=== PATIENT | female | born 2000 | race Caucasian/White ===

== ENCOUNTER 2019-06-21 14:11 | Emergency (ER) | payer BC ==
[2019-06-21 14:15] VITALS: TEMP 97.9
[2019-06-21] MEDS ORDERED: PANTOPRAZOLE 40 MG/10 ML VIAL IVP STA (14:35)
[2019-06-21] MEDS ORDERED: SODIUM CHLORIDE 0.9% 1,000 ML IV ONE (14:35)
[2019-06-21] MEDS ORDERED: ONDANSETRON 4 MG/2 ML VIAL IVP STA (14:35)
[2019-06-21] MEDS ORDERED: SODIUM CHLORIDE 0.9% 1,000 ML IV STA ×2 (14:36)
--- NOTE | 2019-06-21 14:49 | ED ---
Abdominal Pain HPI - General Chief Complaint: Abdominal Pain Stated Complaint: Vomiting Time Seen by Provider: 06/21/19 14:21 Source: patient, RN notes reviewed, old records reviewed Mode of arrival: ambulatory Limitations: no limitations - History of Present Illness Initial Comments: Patient is a 18-year-old female who presents emergency department today with onset of nausea and vomiting starting at 10 AM when she woke up this morning. Patient states that she has no specific abdominal pain. She also started her menstrual period today. Patient states that she has had no fevers or chills. She denies any changes in urination or bowel habits. - Related Data Home Medications Medication Instructions Recorded Confirmed Ibuprofen [Motrin Ib] 400 mg PO Q6H PRN 06/21/19 06/21/19 Previous Rx's Medication Instructions Recorded Ondansetron Odt [Zofran Odt] 4 mg PO Q8HR PRN #12 tab 06/21/19 Allergies Allergy/AdvReac Type Severity Reaction Status Date / Time No Known Allergies Allergy Verified 06/21/19 16:41 Review of Systems ROS Statement: Those systems with pertinent positive or pertinent negative responses have been documented in the HPI. ROS Other: All systems not noted in ROS Statement are negative. Past Medical History Past Medical History: No Reported History Additional Past Medical History / Comment(s): fx right leg at age 1 yrs old, casted History of Any Multi-Drug Resistant Organisms: None Reported Past Surgical History: Appendectomy Additional Past Anesthesia/Blood Transfusion Reaction / Comment(s): never had s urgery Past Psychological History: Bipolar Smoking Status: Never smoker Past Alcohol Use History: None Reported Past Drug Use History: Marijuana - Past Family History Mother Family Medical History: No Reported History Father Family Medical History: Diabetes Mellitus, Hypertension General Exam - General Exam Comments Initial Comments: 18-year-old female. Alert and oriented. Retching. Moderate discomfort. Limitations: no limitations General appearance: alert, in no apparent distress Head exam: Present: atraumatic, normocephalic, normal inspection Eye exam: Present: normal appearance, PERRL, EOMI. Absent: scleral icterus, conjunctival injection, periorbital swelling ENT exam: Present: normal exam, mucous membranes moist Neck exam: Present: normal inspection. Absent: tenderness, meningismus, lymphadenopathy Respiratory exam: Present: normal lung sounds bilaterally. Absent: respiratory distress, wheezes, rales, rhonchi, stridor Cardiovascular Exam: Present: regular rate, normal rhythm, normal heart sounds. Absent: systolic murmur, diastolic murmur, rubs, gallop, clicks GI/Abdominal exam: Present: soft, normal bowel sounds. Absent: distended, tenderness, guarding, rebound, rigid Extremities exam: Present: normal inspection, full ROM, normal capillary refill. Absent: tenderness, pedal edema, joint swelling, calf tenderness Back exam: Present: normal inspection Neurological exam: Present: alert, oriented X3, CN II-XII intact Psychiatric exam: Present: normal affect, normal mood Skin exam: Present: warm, dry, intact, normal color. Absent: rash Course Vital Signs 06/21/19 06/21/19 06/21/19 14:12 16:39 17:40 Temperature 97.9 F Pulse Rate 80 89 85 Respiratory 20 18 18 Rate Blood Pressure 145/81 100/69 102/64 O2 Sat by Pulse 100 97 98 Oximetry Medical Decision Making - Medical Decision Making 18-year-old female. Presents emergency Department today with vomiting, reports some cramping pain. She denied any specific localized pain at this time. She started her menstrual period today. Patient persistent has multiple episodes of vomiting while in the ED. Lab work was reviewed relatively unremarkable. She did have hematuria. KUB showed concern for 1.27 m density could be related to ureter obstructing stone. Therefore with hematuria and computed tomography scan was completed. There is no evidence of obstructing stone at this time. Patient's computed tomography scan shows no acute ureter obstruction. No other source for nausea and vomiting. After Reglan and she was able tolerate some fluids. Discussed likely viral gastritis. I discussed return parameters and following up the emergency department. - Lab Data Result diagrams: 06/21/19 14:33 06/21/19 14:33 Lab Results 06/21/19 06/21/19 06/21/19 Range/Units 14:33 14:33 14:33 WBC 7.4 (4.0-11.0) k/uL RBC 4.13 (3.80-5.40) m/uL Hgb 13.2 (11.4-16.0) gm/dL Hct 39.2 (34.0-46.0) % MCV 95.0 (80.0-100.0) fL MCH 32.0 (25.0-35.0) pg MCHC 33.7 (31.0-37.0) g/dL RDW 11.8 (11.5-15.5) % Plt Count 202 (150-450) k/uL Neutrophils % 83 % Lymphocytes % 13 % Monocytes % 3 % Eosinophils % 1 % Basophils % 0 % Neutrophils # 6.2 (1.3-7.7) k/uL Lymphocytes # 0.9 L (1.0-4.8) k/uL Monocytes # 0.2 (0-1.0) k/uL Eosinophils # 0.1 (0-0.7) k/uL Basophils # 0.0 (0-0.2) k/uL Sodium 139 (137-145) mmol/L Potassium 3.9 (3.5-5.1) mmol/L Chloride 106 (98-107) mmol/L Carbon Dioxide 25 (22-30) mmol/L Anion Gap 8 mmol/L BUN 11 (7-17) mg/dL Creatinine 0.81 (0.52-1.04) mg/dL Est GFR (CKD-EPI)AfAm >90 (>60 ml/min/1.73 sqM) Est GFR (CKD-EPI)NonAf >90 (>60 ml/min/1.73 sqM) Glucose 125 H (74-99) mg/dL Calcium 9.5 (8.4-10.2) mg/dL Total Bilirubin 0.5 (0.2-1.3) mg/dL AST 23 (14-36) U/L ALT 15 (4-34) U/L Alkaline Phosphatase 52 (38-126) U/L Total Protein 7.6 (6.3-8.2) g/dL Albumin 4.8 (3.5-5.0) g/dL Amylase 83 (30-110) U/L Lipase 40 (23-300) U/L Urine Color Yellow Urine Appearance Turbid H (Clear) Urine pH 5.5 (5.0-8.0) Ur Specific [place] 1.032 (1.001-1.035) Urine Protein 1+ H (Negative) Urine Glucose (UA) Negative (Negative) Urine Ketones 2+ H (Negative) Urine Blood Moderate H (Negative) Urine Nitrite Negative (Negative) Urine Bilirubin Negative (Negative) Urine Urobilinogen 2.0 (<2.0) mg/dL Ur Leukocyte Esterase Small H (Negative) Urine RBC 138 H (0-5) /hpf Urine WBC 6 H (0-5) /hpf Ur Squamous Epith Cells 4 (0-4) /hpf Amorphous Sediment Moderate H (None) /hpf Urine Mucus Occasional H (None) /hpf Urine HCG, Qual (Not Detectd) 06/21/19 Range/Units 14:33 WBC (4.0-11.0) k/uL RBC (3.80-5.40) m/uL Hgb (11.4-16.0) gm/dL Hct (34.0-46.0) % MCV (80.0-100.0) fL MCH (25.0-35.0) pg MCHC (31.0-37.0) g/dL RDW (11.5-15.5) % Plt Count (150-450) k/uL Neutrophils % % Lymphocytes % % Monocytes % % Eosinophils % % Basophils % % Neutrophils # (1.3-7.7) k/uL Lymphocytes # (1.0-4.8) k/uL Monocytes # (0-1.0) k/uL Eosinophils # (0-0.7) k/uL Basophils # (0-0.2) k/uL Sodium (137-145) mmol/L Potassium (3.5-5.1) mmol/L Chloride (98-107) mmol/L Carbon Dioxide (22-30) mmol/L Anion Gap mmol/L BUN (7-17) mg/dL Creatinine (0.52-1.04) mg/dL Est GFR (CKD-EPI)AfAm (>60 ml/min/1.73 sqM) Est GFR (CKD-EPI)NonAf (>60 ml/min/1.73 sqM) Glucose (74-99) mg/dL Calcium (8.4-10.2) mg/dL Total Bilirubin (0.2-1.3) mg/dL AST (14-36) U/L ALT (4-34) U/L Alkaline Phosphatase (38-126) U/L Total Protein (6.3-8.2) g/dL Albumin (3.5-5.0) g/dL Amylase (30-110) U/L Lipase (23-300) U/L Urine Color Urine Appearance (Clear) Urine pH (5.0-8.0) Ur Specific [place] (1.001-1.035) Urine Protein (Negative) Urine Glucose (UA) (Negative) Urine Ketones (Negative) Urine Blood (Negative) Urine Nitrite (Negative) Urine Bilirubin (Negative) Urine Urobilinogen (<2.0) mg/dL Ur Leukocyte Esterase (Negative) Urine RBC (0-5) /hpf Urine WBC (0-5) /hpf Ur Squamous Epith Cells (0-4) /hpf Amorphous Sediment (None) /hpf Urine Mucus (None) /hpf Urine HCG, Qual Not Detected (Not Detectd) - Radiology Data Radiology results: report reviewed Interpreted by me: Calcification over the left upper quadrant the L3 level. This could be a urinary tract calculus. CT shows small amount of fluid in the pelvis on the right side could be physiologic. An obstructing 5 mm low-density calcification on the anterior left kidney. No significant change compared to prior exam. There is a calcific density over the left mid abdomen on x-ray today that is not evidence on computed tomography scan. Overlying artifact. Disposition Clinical Impression: Gastroenteritis, Nausea & vomiting, Menstruation Disposition: HOME SELF-CARE Condition: Good Instructions (If sedation given, give patient instructions): Gastroenteritis (ED) Additional Instructions: Patient advised to rest, clear liquid diet for the next 24 hours and slowly advance to bananas, applesauce and toast and bland food. Medical follow-up with your PCP if symptoms continue to persist or return to the emergency department if there is any high fever or severe pain. Prescriptions: Ondansetron Odt [Zofran Odt] 4 mg PO Q8HR PRN #12 tab PRN Reason: Nausea Is patient prescribed a controlled substance at d/c from ED?: No Referrals: None,Stated [Primary Care Provider] - 1-2 days Time of Disposition: 17:36
[2019-06-21 15:00] LABS: Amorphous Sediment,Urine Moderate /hpf; Appearance,Urine Turbid (Clear); Bilirubin,Urine Negative (Negative); Blood,Urine Moderate (Negative); Color,Urine Yellow; Glucose,Urine (UA) Negative (Negative); Ketones,Urine 2+ (Negative); Leukocyte Esterase,Urine Small (Negative); Mucus,Urine Occasional /hpf; Nitrite,Urine Negative (Negative); PH, Urine 5.5 (5.0-8.0); Protein,Urine 1+ (Negative); RBC,Urine 138 /hpf (0-5); Specific Gravity,Urine 1.032 (1.001-1.035); Squamous Epithelial Cell,Urine 4 /hpf (0-4); WBC,Urine 6 /hpf (0-5)
[2019-06-21 15:03] LABS: ALT 15 U/L (4-34); AST 23 U/L (14-36); African American GFR (CKD) >90 (>60 ml/min/1.73 sqM); Albumin 4.8 g/dL (3.5-5.0); Alkaline Phosphatase 52 U/L (38-126); Amylase 83 U/L (30-110); Anion Gap 8 mmol/L; Blood Urea Nitrogen 11 mg/dL (7-17); Calcium 9.5 mg/dL (8.4-10.2); Carbon Dioxide 25 mmol/L (22-30); Chloride 106 mmol/L (98-107); Glucose 125 mg/dL (74-99); Non-African American GFR(CKD) >90 (>60 ml/min/1.73 sqM); Potassium 3.9 mmol/L (3.5-5.1); Sodium 139 mmol/L (137-145); Total Bilirubin 0.5 mg/dL (0.2-1.3); Total Protein 7.6 g/dL (6.3-8.2)
[2019-06-21 15:15] LABS: Basophils % (A) 0 %; Eosinophils # (A) 0.1 k/uL (0-0.7); Eosinophils % (A) 1 %; HCT 39.2 % (34.0-46.0); HGB 13.2 gm/dL (11.4-16.0); Lymphocytes # (A) 0.9 k/uL (1.0-4.8); Lymphocytes % (A) 13 %; MCHC 33.7 g/dL (31.0-37.0); Mean Platelet Volume 8.6; Monocytes # (A) 0.2 k/uL (0-1.0); Monocytes % (A) 3 %; Neutrophils # (A) 6.2 k/uL (1.3-7.7); Neutrophils % (A) 83 %; Platelet Count 202 k/uL (150-450); RBC 4.13 m/uL (3.80-5.40); RDW 11.8 % (11.5-15.5); WBC 7.4 k/uL (4.0-11.0)
--- NOTE | 2019-06-21 15:20 | XR ---
EXAMINATION TYPE: XR KUB DATE OF EXAM: 06/21/2019 COMPARISON: NONE HISTORY: Abdominal pain TECHNIQUE: 2 views upright FINDINGS: There is no sign of intestinal obstruction or pneumoperitoneum. There is 1.3 cm calcificati on over the left upper quadrant at the L3 level. This could be a urinary tract calculus. Bony structu res are intact. Fecal pattern is normal. IMPRESSION: Calcification on the left side could be in the urinary tract.
[2019-06-21] MEDS ORDERED: KETOROLAC 30 MG/ML 1 ML VIAL IVP STA (15:31)
[2019-06-21] MEDS ORDERED: METOCLOPRAMIDE 5 MG/ML 2 ML VIAL IVP STA (15:31)
--- NOTE | 2019-06-21 16:38 | CT ---
EXAMINATION TYPE: CT abdomen pelvis wo con DATE OF EXAM: 06/21/2019 COMPARISON: 03/17/2016 HISTORY: Abnormal KUB, hematuria, vomiting. CT DLP: 596.7 mGycm Automated exposure control for dose reduction was used. Multiple axial sections were obtained from the diaphragm to the floor the pelvis with no contrast. The lung bases are clear. There is no pleural effusion. Heart size is normal. There is no pericardial effusion. Liver spleen pancreas gallbladder appear normal. Bile ducts are not dilated. There is no a drenal mass. Kidneys have normal size. There is no hydronephrosis. Ureters are not dilated. There is low-density 5 mm calcification anterior left kidney consistent with a nonobstructing calculus. There is no retrope ritoneal adenopathy. There is linear density in the right lower quadrant that could be surgical clips from appendectomy. Appendix is not seen. There is no sign of thickened appendix. There is no inguina l hernia. Uterus is anteverted. There is no evidence of a pelvic mass. There is small amount of free fluid in the pelvis on the right side. There is no mesenteric edema. There is no ascites or free air. There is no evidence of a bowel obstru ction. Lumbar spine is intact. Bony pelvis is intact. IMPRESSION: Small amount of fluid in the pelvis on the right side could be physiologic. Nonobstructing 5 mm low-d ensity calcification anterior left kidney. No significant change compared to old exam. There is a calcific density over the left mid abdomen on the abdomen x-ray today that is not evident on the CT scan. This could be some overlying artifact.
[2019-06-21 16:55] VITALS: RESP 18
[2019-06-21 17:45] VITALS: BP 102/64; PULSE 85
== END 2019-06-21 17:40 | disposition home or self-care (01) ==
LOC: EC 14:11
DX: K52.9 Noninfective gastroenteritis and colitis, unspecified (principal)
CPT/HCPCS: 36415; 80053; 82150; 83690; 85025; 81001; 81025; 74018; 74176; 99285; 96374; 96375 ×3; 96361 ×3; J2765; J2405; J1885; C9113

== ENCOUNTER 2020-11-11 09:39 | Emergency (ER) | payer BC, OTHER ==
[2020-11-11] MEDS ORDERED: SODIUM CHLORIDE 0.9% 1,000 ML IV STA (09:43)
--- NOTE | 2020-11-11 10:02 | ED ---
General Adult HPI - General Chief complaint: Syncope Stated complaint: Syncope Time Seen by Provider: 11/11/20 09:40 Source: EMS Mode of arrival: EMS Limitations: no limitations - History of Present Illness Initial comments: Patient is a 20-year-old female with past medical history of anemia who presents to the emergency department after she had a syncopal episode. 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 She began feeling diaphoretic and lightheaded. She reports that the next thing she knew she was waking up on the ground with everyone around her. She was lowered to the ground and did not sustain any trauma. She was only out for a few seconds. Patient denies previous history of syncope. States she did not eat breakfast this morning however this is common of her to skip the meal. She denies any headaches or visual changes. No chest pain or shortness of breath. No family history of sudden cardiac . She is currently on her menstrual cycle. Denies concern for . Denies any abdominal pain. No heavy vaginal bleeding out of her normal flow. No recent illnesses. Denies fevers or chills. No black or bloody stools. No changes in her urination. Patient was picked up by EMS and found to have initial low blood pressures. She was given a 500 bolus en route to the hospital with improvement. Patient denies any pain in her extremities. No other alleviating, precipitating or modifying factors - Related Data Home Medications Medication Instructions Recorded Confirmed No Known Home Medications 11/11/20 11/11/20 Allergies Allergy/AdvReac Type Severity Reaction Status Date / Time cat dander Allergy Dyspnea Verified 11/11/20 11:38 Review of Systems ROS Statement: Those systems with pertinent positive or pertinent negative responses have been documented in the HPI. ROS Other: All systems not noted in ROS Statement are negative. Past Medical History Past Medical History: No Reported History Additional Past Medical History / Comment(s): fx right leg at age 1 yrs old, casted, anemia History of Any Multi-Drug Resistant Organisms: None Reported Past Surgical History: Appendectomy Additional Past Anesthesia/Blood Transfusion Reaction / Comment(s): never had surgery Past Psychological History: Bipolar Smoking Status: Vaper Past Alcohol Use History: None Reported Past Drug Use History: Marijuana - Past Family History Mother Family Medical History: No Reported History Father Family Medical History: Diabetes Mellitus, Hypertension General Exam Limitations: no limitations General appearance: alert, in no apparent distress Head exam: Present: atraumatic, normocephalic, normal inspection Eye exam: Present: normal appearance, PERRL, EOMI. Absent: scleral icterus, conjunctival injection, periorbital swelling ENT exam: Present: normal exam, mucous membranes moist Neck exam: Present: normal inspection. Absent: tenderness, meningismus, lymphadenopathy Respiratory exam: Present: normal lung sounds bilaterally. Absent: respiratory distress, wheezes, rales, rhonchi, stridor Cardiovascular Exam: Present: regular rate, normal rhythm, normal heart sounds. Absent: systolic murmur, diastolic murmur, rubs, gallop, clicks GI/Abdominal exam: Present: soft, normal bowel sounds. Absent: distended, tenderness, guarding, rebound, rigid Extremities exam: Present: normal inspection, full ROM, normal capillary refill. Absent: tenderness, pedal edema, joint swelling, calf tenderness Back exam: Present: normal inspection Neurological exam: Present: alert, oriented X3, CN II-XII intact Psychiatric exam: Present: normal affect, normal mood Skin exam: Present: warm, dry, intact, normal color. 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 NE interval is 154. QRS 80. QTC of 428. Inverted T-wave in lead 3. No acute ST segment elevations. No signs of [id number]-[id number] or Brugada syndrome Medical Decision Making - Medical Decision Making Upon arrival patient is placed into room 2. A thorough history and physical exam was performed. Orthostatics are obtained and are negative. Patient is already received fluids from EMS. I did give the patient an additional liter bolus. Laboratory studies were conducted. Hemoglobin stable at 12.9. Urinalysis does demonstrate small leukocyte esterase and 17 white blood cells. Patient has no complaint of urinary tract infection at this time and therefore specimen will not be treated. HCG is negative. Glucose 117. I did discuss results with the patient. She is eager to leave. I did discuss diagnosis, differential treatment options. Recommend she follow up with a primary care doctor for which she does not have one. I did recommend several PCP doctors to her. Recommend that she follow up for echo. If she has any new or worsening symptoms she should return to the emergency room. Patient was discharged in stable condition - Lab Data Result diagrams: 11/11/20 09:48 11/11/20 09:48 Lab Results 11/11/20 11/11/20 11/11/20 Range/Units 09:48 09:48 09:48 WBC 3.6 L (3.8-10.6) k/uL RBC 3.81 (3.80-5.40) m/uL Hgb 12.9 (11.4-16.0) gm/dL Hct 37.0 (34.0-46.0) % MCV 97.2 (80.0-100.0) fL MCH 33.8 (25.0-35.0) pg MCHC 34.8 (31.0-37.0) g/dL RDW 11.7 (11.5-15.5) % Plt Count 184 (150-450) k/uL MPV 8.0 Neutrophils % 60 % Lymphocytes % 29 % Monocytes % 5 % Eosinophils % 3 % Basophils % 0 % Neutrophils # 2.1 (1.3-7.7) k/uL Lymphocytes # 1.1 (1.0-4.8) k/uL Monocytes # 0.2 (0-1.0) k/uL Eosinophils # 0.1 (0-0.7) k/uL Basophils # 0.0 (0-0.2) k/uL Sodium 137 (137-145) mmol/L Potassium 3.8 (3.5-5.1) mmol/L Chloride 106 (98-107) mmol/L Carbon Dioxide 23 (22-30) mmol/L Anion Gap 8 mmol/L BUN 11 (7-17) mg/dL Creatinine 0.73 (0.52-1.04) mg/dL Est GFR (CKD-EPI)AfAm >90 (>60 ml/min/1.73 sqM) Est GFR (CKD-EPI)NonAf >90 (>60 ml/min/1.73 sqM) Glucose 117 H (74-99) mg/dL Calcium 8.8 (8.4-10.2) mg/dL Total Bilirubin 0.3 (0.2-1.3) mg/dL AST 17 (14-36) U/L ALT 11 (4-34) U/L Alkaline Phosphatase 49 (38-126) U/L Total Protein 6.5 (6.3-8.2) g/dL Albumin 3.9 (3.5-5.0) g/dL HCG, Qual Not Detected Urine Color Yellow Urine Appearance Cloudy H (Clear) Urine pH 5.5 (5.0-8.0) Ur Specific [place] 1.033 (1.001-1.035) Urine Protein 1+ H (Negative) Urine Glucose (UA) Negative (Negative) Urine Ketones Negative (Negative) Urine Blood Negative (Negative) Urine Nitrite Negative (Negative) Urine Bilirubin 1+ H (Negative) Urine Urobilinogen 4.0 (<2.0) mg/dL Ur Leukocyte Esterase Small H (Negative) Urine RBC 5 (0-5) /hpf Urine WBC 17 H (0-5) /hpf Ur Squamous Epith Cells 5 H (0-4) /hpf Hyaline Casts 4 H (0-2) /lpf Urine Mucus Many H (None) /hpf Disposition Clinical Impression: Syncope Disposition: HOME SELF-CARE Condition: Stable Instructions (If sedation given, give patient instructions): Syncope (ED) Additional Instructions: Please follow-up with your primary care doctor in 2-4 days. I do recommend an echo of her heart. Return to the emergency room for any new or worsening s ymptoms Is patient prescribed a controlled substance at d/c from ED?: No Referrals: Ruth Francisco MD [REFERRING] - 1-2 days Norm Bishop MD [STAFF PHYSICIAN] - 1-2 days Time of Disposition: 11:36
[2020-11-11 10:08] LABS: Basophils % (A) 0 %; Eosinophils # (A) 0.1 k/uL (0-0.7); Eosinophils % (A) 3 %; HGB 12.9 gm/dL (11.4-16.0); Lymphocytes # (A) 1.1 k/uL (1.0-4.8); Lymphocytes % (A) 29 %; MCH 33.8 pg (25.0-35.0); MCHC 34.8 g/dL (31.0-37.0); MCV 97.2 fL (80.0-100.0); Monocytes # (A) 0.2 k/uL (0-1.0); Monocytes % (A) 5 %; Neutrophils # (A) 2.1 k/uL (1.3-7.7); Neutrophils % (A) 60 %; Platelet Count 184 k/uL (150-450); RBC 3.81 m/uL (3.80-5.40); RDW 11.7 % (11.5-15.5); WBC 3.6 k/uL (3.8-10.6)
[2020-11-11 10:16] LABS: HCG,Qualitative Serum Not Detected
[2020-11-11 10:17] LABS: ALT 11 U/L (4-34); AST 17 U/L (14-36); African American GFR (CKD) >90 (>60 ml/min/1.73 sqM); Albumin 3.9 g/dL (3.5-5.0); Alkaline Phosphatase 49 U/L (38-126); Anion Gap 8 mmol/L; Blood Urea Nitrogen 11 mg/dL (7-17); Calcium 8.8 mg/dL (8.4-10.2); Carbon Dioxide 23 mmol/L (22-30); Chloride 106 mmol/L (98-107); Glucose 117 mg/dL (74-99); Non-African American GFR(CKD) >90 (>60 ml/min/1.73 sqM); Potassium 3.8 mmol/L (3.5-5.1); Sodium 137 mmol/L (137-145); Total Bilirubin 0.3 mg/dL (0.2-1.3); Total Protein 6.5 g/dL (6.3-8.2)
[2020-11-11 10:57] VITALS: BP 147/95; PULSE 70; RESP 16; TEMP 98.2
[2020-11-11 11:23] LABS: Appearance,Urine Cloudy (Clear); Bilirubin,Urine 1+ (Negative); Blood,Urine Negative (Negative); Color,Urine Yellow; Glucose,Urine (UA) Negative (Negative); Hyaline Casts,Urine 4 /lpf (0-2); Ketones,Urine Negative (Negative); Leukocyte Esterase,Urine Small (Negative); Mucus,Urine Many /hpf; Nitrite,Urine Negative (Negative); PH, Urine 5.5 (5.0-8.0); Protein,Urine 1+ (Negative); RBC,Urine 5 /hpf (0-5); Specific Gravity,Urine 1.033 (1.001-1.035); Squamous Epithelial Cell,Urine 5 /hpf (0-4); WBC,Urine 17 /hpf (0-5)
== END 2020-11-11 12:02 | disposition home or self-care (01) ==
LOC: EC 09:39
DX: R55 Syncope and collapse (principal); R42 Dizziness and giddiness; F31.9 Bipolar disorder, unspecified; F17.290 Nicotine dependence, other tobacco product, uncomplicated; F12.90 Cannabis use, unspecified, uncomplicated; R61 Generalized hyperhidrosis
CPT/HCPCS: 36415; 80053; 81001; 84703; 85025; 93005; 96360; 96361; 99284

== ENCOUNTER 2021-03-04 08:06 | Emergency (ER) | payer OTHER ==
--- NOTE | 2021-03-04 09:34 | ED ---
Female Urogenital HPI - General Chief complaint: Vaginal Bleeding Stated complaint: , vaginal bleeding Time Seen by Provider: 03/04/21 08:12 Source: patient, RN notes reviewed Mode of arrival: ambulatory Limitations: no limitations - History of Present Illness Initial comments: Patient is a 20-year-old female presenting to the emergency Department with complaints of vaginal bleeding and abdominal cramping that started last night. The patient took a home test about 1-2 weeks ago, was positive. Serum having some light spotting yesterday, decided to take another test which was positive again. She states the bleeding has increased today and she started having worsening cramping so she came in for evaluation. This is her first . As her chills, no chest pain or shortness of breath. She's had appendectomy, no other abdominal surgeries. She denies any dysuria or hematuria. She has no further complaints. Her vital signs are stable upon arrival. Last Menstrual Period: 01/29/21 - Related Data Home Medications Medication Instructions Recorded Confirmed No Known Home Medications 11/11/20 03/04/21 Allergies Allergy/AdvReac Type Severity Reaction Status Date / Time cat dander Allergy Dyspnea Verified 03/04/21 09:27 Review of Systems ROS Statement: Those systems with pertinent positive or pertinent negative responses have been documented in the HPI. ROS Other: All systems not noted in ROS Statement are negative. Past Medical History Past Medical History: No Reported History Additional Past Medical History / Comment(s): fx right leg at age 1 yrs old, casted, anemia History of Any Multi-Drug Resistant Organisms: None Reported Past Surgical History: Appendectomy Additional Past Anesthesia/Blood Transfusion Reaction / Comment(s): never had surgery Past Psychological History: Bipolar Smoking Status: Vaper Past Alcohol Use History: None Reported Past Drug Use History: Marijuana - Past Family History Mother Family Medical History: No Reported History Father Family Medical History: Diabetes Mellitus, Hypertension General Exam - General Exam Comments Initial Comments: GENERAL: Patient is well-developed and well-nourished. Patient is nontoxic and in no acute distress. HEAD: Atraumatic, normocephalic. EYES: Pupils equal round and reactive to light, extraocular movements intact, sclera anicteric, conjunctiva are normal. Eyelids were unremarkable. ENT: Moist mucous membranes. NECK: Normal range of motion, supple without lymphadenopathy or JVD. LUNGS: Unlabored respirations. Breath sounds clear to auscultation bilaterally and equal. No wheezes rales or rhonchi. HEART: Regular rate and rhythm without murmurs, rubs or gallops. ABDOMEN: Soft, mild suprapubic discomfort on palpation, no other areas of pain normoactive bowel sounds. No guarding, no rebound. No masses appreciated. : Deferred MUSCULOSKELETAL: Normal extremities with adequate strength and normal range of motion, no pitting or edema. No clubbing or cyanosis. NEUROLOGICAL: Patient is alert and oriented x 3. SKIN: Warm, Dry, normal turgor, no rashes or lesions noted. Limitations: no limitations Course Vital Signs 03/04/21 08:08 Temperature 97.2 F L Pulse Rate 55 L Respiratory 18 Rate Blood Pressure 121/86 O2 Sat by Pulse 100 Oximetry Medical Decision Making - Medical Decision Making Patient is a 20-year-old female here for vaginal bleeding and abdominal cramping and increased today. She had a home positive test 1-2 weeks ago, she took another one yesterday. This is her first . Vitals are stable, no fevers. Labs show an hCG Quant is 6.9, no signs of infection on the urine. Blood type is O+. Ultrasound at this time shows no visualized IUP, this could be a too early visualized , nonvisualized ectopic and/or a failed . Recommend serial beta hCGs. She will repeat the beta in 48 hours. I will give her [facility] [facility]IST follow-up. She is stable for discharge. Return parameters were also discussed with her and she verbalized understanding. Case discussed with Dr. Lama. - Lab Data Result diagrams: 03/04/21 09:05 03/04/21 09:05 Lab Results 03/04/21 03/04/21 03/04/21 Range/Units 09:05 09:05 09:05 WBC 4.3 (3.8-10.6) k/uL RBC 3.78 L (3.80-5.40) m/uL Hgb 12.9 (11.4-16.0) gm/dL Hct 36.5 (34.0-46.0) % MCV 96.5 (80.0-100.0) fL MCH 34.1 (25.0-35.0) pg MCHC 35.3 (31.0-37.0) g/dL RDW 12.5 (11.5-15.5) % Plt Count 191 (150-450) k/uL MPV 8.2 Neutrophils % 55 % Lymphocytes % 34 % Monocytes % 6 % Eosinophils % 3 % Basophils % 0 % Neutrophils # 2.4 (1.3-7.7) k/uL Lymphocytes # 1.5 (1.0-4.8) k/uL Monocytes # 0.3 (0-1.0) k/uL Eosinophils # 0.1 (0-0.7) k/uL Basophils # 0.0 (0-0.2) k/uL Sodium 139 (137-145) mmol/L Potassium 4.5 (3.5-5.1) mmol/L Chloride 106 (98-107) mmol/L Carbon Dioxide 27 (22-30) mmol/L Anion Gap 6 mmol/L BUN 11 (7-17) mg/dL Creatinine 0.79 (0.52-1.04) mg/dL Est GFR (CKD-EPI)AfAm >90 (>60 ml/min/1.73 sqM) Est GFR (CKD-EPI)NonAf >90 (>60 ml/min/1.73 sqM) Glucose 88 (74-99) mg/dL Calcium 8.9 (8.4-10.2) mg/dL Total Bilirubin 0.2 (0.2-1.3) mg/dL AST 21 (14-36) U/L ALT 17 (4-34) U/L Alkaline Phosphatase 78 (38-126) U/L Total Protein 6.5 (6.3-8.2) g/dL Albumin 3.9 (3.5-5.0) g/dL HCG, Quant 6.9 mIU/mL Urine Color Red Urine Appearance Cloudy H (Clear) Urine pH 5.5 (5.0-8.0) Ur Specific [place] 1.029 (1.001-1.035) Urine Protein 2+ H (Negative) Urine Glucose (UA) Negative (Negative) Urine Ketones Trace H (Negative) Urine Blood Large H (Negative) Urine Nitrite Negative (Negative) Urine Bilirubin Negative (Negative) Urine Urobilinogen 2.0 (<2.0) mg/dL Ur Leukocyte Esterase Small H (Negative) Urine RBC >182 H (0-5) /hpf Urine WBC 18 H (0-5) /hpf Ur Squamous Epith Cells 10 H (0-4) /hpf Urine Mucus Many H (None) /hpf Blood Type Blood Type Confirm Blood Type Recheck Bld Type Recheck Status Antibody Screen Spec Expiration Date 03/04/21 03/04/21 03/04/21 Range/Units 09:12 09:20 10:02 WBC (3.8-10.6) k/uL RBC (3.80-5.40) m/uL Hgb (11.4-16.0) gm/dL Hct (34.0-46.0) % MCV (80.0-100.0) fL MCH (25.0-35.0) pg MCHC (31.0-37.0) g/dL RDW (11.5-15.5) % Plt Count (150-450) k/uL MPV Neutrophils % % Lymphocytes % % Monocytes % % Eosinophils % % Basophils % % Neutrophils # (1.3-7.7) k/uL Lymphocytes # (1.0-4.8) k/uL Monocytes # (0-1.0) k/uL Eosinophils # (0-0.7) k/uL Basophils # (0-0.2) k/uL Sodium (137-145) mmol/L Potassium (3.5-5.1) mmol/L Chloride (98-107) mmol/L Carbon Dioxide (22-30) mmol/L Anion Gap mmol/L BUN (7-17) mg/dL Creatinine (0.52-1.04) mg/dL Est GFR (CKD-EPI)AfAm (>60 ml/min/1.73 sqM) Est GFR (CKD-EPI)NonAf (>60 ml/min/1.73 sqM) Glucose (74-99) mg/dL Calcium (8.4-10.2) mg/dL Total Bilirubin (0.2-1.3) mg/dL AST (14-36) U/L ALT (4-34) U/L Alkaline Phosphatase (38-126) U/L Total Protein (6.3-8.2) g/dL Albumin (3.5-5.0) g/dL HCG, Quant mIU/mL Urine Color Urine Appearance (Clear) Urine pH (5.0-8.0) Ur Specific [place] (1.001-1.035) Urine Protein (Negative) Urine Glucose (UA) (Negative) Urine Ketones (Negative) Urine Blood (Negative) Urine Nitrite (Negative) Urine Bilirubin (Negative) Urine Urobilinogen (<2.0) mg/dL Ur Leukocyte Esterase (Negative) Urine RBC (0-5) /hpf Urine WBC (0-5) /hpf Ur Squamous Epith Cells (0-4) /hpf Urine Mucus (None) /hpf Blood Type O Positive Blood Type Confirm O Positive Blood Type Recheck No Previous Record Bld Type Recheck Status CABO Indicated Antibody Screen NEGATIVE Spec Expiration Date 03/07/20212304 Disposition Clinical Impression: Threatened Disposition: HOME SELF-CARE Condition: Stable Instructions (If sedation given, give patient instructions): Threatened Miscarriage (ED) Additional Instructions: Please return to the Emergency Department if symptoms worsen or any other concerns. Repeat beta hCG levels in 48 hours as discussed. Please follow up with [facility] M[facility]INIST. Is patient prescribed a controlled substance at d/c from ED?: No Referrals: None,Stated [Primary Care Provider] - 1-2 days Shauna Hector DO [Doctor of Osteopathic Medicine] - 1-2 days Time of Disposition: 11:17
[2021-03-04 09:59] LABS: Basophils % (A) 0 %; Eosinophils # (A) 0.1 k/uL (0-0.7); Eosinophils % (A) 3 %; HCT 36.5 % (34.0-46.0); HGB 12.9 gm/dL (11.4-16.0); Lymphocytes # (A) 1.5 k/uL (1.0-4.8); Lymphocytes % (A) 34 %; MCH 34.1 pg (25.0-35.0); MCHC 35.3 g/dL (31.0-37.0); MCV 96.5 fL (80.0-100.0); Mean Platelet Volume 8.2; Monocytes # (A) 0.3 k/uL (0-1.0); Monocytes % (A) 6 %; Neutrophils # (A) 2.4 k/uL (1.3-7.7); Neutrophils % (A) 55 %; Platelet Count 191 k/uL (150-450); RBC 3.78 m/uL (3.80-5.40); RDW 12.5 % (11.5-15.5); WBC 4.3 k/uL (3.8-10.6)
[2021-03-04 10:10] LABS: ALT 17 U/L (4-34); AST 21 U/L (14-36); African American GFR (CKD) >90 (>60 ml/min/1.73 sqM); Albumin 3.9 g/dL (3.5-5.0); Alkaline Phosphatase 78 U/L (38-126); Anion Gap 6 mmol/L; Blood Urea Nitrogen 11 mg/dL (7-17); Calcium 8.9 mg/dL (8.4-10.2); Carbon Dioxide 27 mmol/L (22-30); Chloride 106 mmol/L (98-107); Glucose 88 mg/dL (74-99); Non-African American GFR(CKD) >90 (>60 ml/min/1.73 sqM); Potassium 4.5 mmol/L (3.5-5.1); Sodium 139 mmol/L (137-145); Total Bilirubin 0.2 mg/dL (0.2-1.3); Total Protein 6.5 g/dL (6.3-8.2)
[2021-03-04 10:25] LABS: Appearance,Urine Cloudy (Clear); Bilirubin,Urine Negative (Negative); Blood,Urine Large (Negative); Color,Urine Red; Glucose,Urine (UA) Negative (Negative); Ketones,Urine Trace (Negative); Leukocyte Esterase,Urine Small (Negative); Mucus,Urine Many /hpf; Nitrite,Urine Negative (Negative); PH, Urine 5.5 (5.0-8.0); Protein,Urine 2+ (Negative); RBC,Urine >182 /hpf (0-5); Specific Gravity,Urine 1.029 (1.001-1.035); Squamous Epithelial Cell,Urine 10 /hpf (0-4); WBC,Urine 18 /hpf (0-5)
[2021-03-04 10:27] LABS: HCG,Quantitative Serum 6.9 mIU/mL
--- NOTE | 2021-03-04 11:02 | US ---
EXAMINATION TYPE: Ultrasound OB <= 14 weeks transvaginal DATE OF EXAM: 03/04/2021 10:31 AM COMPARISON: NONE CLINICAL HISTORY: 20-year-old female early preg, bleeding/cramping. + preg test at home, cramping and bleeding started today, passing clots, G1 EXAM PERFORMED: OBTA/OBTV EXAM MEASUREMENTS: GESTATIONAL AGE / DATING Physician Established: Not yet established Dates by LMP: (4 weeks/6 days) EDC: 11/05/2021 Dates by First Scan: No previous this is first scan Dates by Current Scan for: Unable to date by today's study FINDINGS: MATERNAL ANATOMY Uterus: 7.3 x 4.0 x 3.8cm Right Ovary: 3.7 x 2.2 x 1.6cm Left Ovary: 2.1 x 1.6 x 1.9cm Post CDS / Adnexa: wnl Presence of free fluid: no Presence of corpus luteal cyst: possible on the right = 1.7cm Presence of subchorionic bleed: no GESTATION / SURVEY Endometrium = 0.4 - 0.8cm Date of LMP: 01-29-2021 Beta HcG (if available): 6.9 IMPRESSION: No visualized intrauterine . Note the very low beta hCG, below the threshold for visualizati on of an intrauterine . Differential considerations include too early to visualize intrauter ine , nonvisualized ectopic, and failed . Serial beta hCG recommended. Ultrasound f ollow-up to ensure the appearance of a normal pole with cardiac activity.
[2021-03-04 12:01] VITALS: BP 118/84; PULSE 62; RESP 17; TEMP 97.1
== END 2021-03-04 12:01 | disposition home or self-care (01) ==
LOC: EC 08:06
DX: O20.0 Threatened abortion (principal); Z3A.00 Weeks of gestation of pregnancy not specified; F31.9 Bipolar disorder, unspecified; F17.290 Nicotine dependence, other tobacco product, uncomplicated; F12.90 Cannabis use, unspecified, uncomplicated
CPT/HCPCS: 36415; 76801; 76817; 80053; 81001; 84702; 85025; 86850; 86900; 86901; 87077; 87086; 87186; 99284

== ENCOUNTER → 2021-03-06 | Outpatient (CLI) | payer OTHER | END | disposition home or self-care (01) | LOC: LABWHC1 12:34 → EDSTATUS 13:19 | PROVIDERS: ATTEND Specialist/Technologist Athletic Trainer | DX: O20.0 Threatened abortion (principal); Z3A.00 Weeks of gestation of pregnancy not specified | CPT/HCPCS: 36415; 84702 ==

== ENCOUNTER 2021-08-24 09:50 | Emergency (ER) | payer OTHER ==
[2021-08-24 10:57] VITALS: RESP 18
[2021-08-24] MEDS ORDERED: SODIUM CHLORIDE 0.9% 1,000 ML IV ONE (11:20)
[2021-08-24 12:06] LABS: Basophils % (A) 1 %; Eosinophils % (A) 0 %; HCT 37.4 % (34.0-46.0); HGB 12.7 gm/dL (11.4-16.0); Lymphocytes # (A) 1.1 k/uL (1.0-4.8); Lymphocytes % (A) 24 %; MCH 32.3 pg (25.0-35.0); MCV 94.8 fL (80.0-100.0); Mean Platelet Volume 7.3; Monocytes # (A) 0.4 k/uL (0-1.0); Monocytes % (A) 8 %; Neutrophils # (A) 2.9 k/uL (1.3-7.7); Neutrophils % (A) 65 %; Platelet Count 261 k/uL (150-450); RBC 3.95 m/uL (3.80-5.40); RDW 11.7 % (11.5-15.5); WBC 4.5 k/uL (3.8-10.6)
[2021-08-24 12:25] LABS: ALT 15 U/L (4-34); AST 25 U/L (14-36); African American GFR (CKD) >90 (>60 ml/min/1.73 sqM); Albumin 4.4 g/dL (3.5-5.0); Alkaline Phosphatase 46 U/L (38-126); Anion Gap 12 mmol/L; Blood Urea Nitrogen 9 mg/dL (7-17); Calcium 8.9 mg/dL (8.4-10.2); Carbon Dioxide 25 mmol/L (22-30); Chloride 99 mmol/L (98-107); Glucose 86 mg/dL (74-99); Non-African American GFR(CKD) >90 (>60 ml/min/1.73 sqM); Potassium 3.3 mmol/L (3.5-5.1); Sodium 136 mmol/L (137-145); Total Bilirubin 0.4 mg/dL (0.2-1.3); Total Protein 7.6 g/dL (6.3-8.2)
--- NOTE | 2021-08-24 12:27 | US ---
EXAMINATION TYPE: Transabdominal DATE OF EXAM: 08/24/2021 12:17 PM COMPARISON: NONE CLINICAL HISTORY: pain. Pelvic pain and bleeding x 1 day EXAM PERFORMED: Transabdominal (TA) EXAM MEASUREMENTS: GESTATIONAL AGE / DATING Physician Established: (13 weeks/1 days) EDC: 02/28/2022 Dates by LMP: LMP unknown Dates by First Scan: No previous this is first scan Dates by Current Scan for: (13 weeks/5 days) EDC: 02/24/2022 MATERNAL ANATOMY Uterus: 11.6 x 9.2 x 9.2cm Right Ovary: 2.8 x 2.0 x 1.7cm Left Ovary: 3.2 x 2.6 x 1.8cm Post CDS / Adnexa: small amount of free fluid in posterior cul de sac Presence of free fluid: yes Presence of corpus luteal cyst: not seen Presence of subchorionic bleed: 3.2cm anterior to gestational sac GESTATION / SURVEY CRL: 7.6cm (13 weeks/5 days) Yolk Sac (normal less than 6mm): not seen Heart Rate: 144 bpm Rhythm: Normal IUP: Viable IUP Single live intrauterine gestation as pole and gestational sac seen. Curvilinear anterior right fluid collection measuring 3.2 cm long axis is felt to reflect small subchorionic hemorrhage. No yol k sac identified likely due to size of fetus. Trace amount of free fluid in pelvic cul-de-sac. Both ovaries seen and normal in size. No suspicious extraovarian adnexal mass. IMPRESSION: Single live intrauterine gestation is confirmed. Mean crown-rump length is 7.6 cm corresp onding to 13 week 5 day old fetus.
[2021-08-24 12:31] LABS: Appearance,Urine Cloudy (Clear); Bacteria,Urine Rare /hpf; Bilirubin,Urine Negative (Negative); Blood,Urine Large (Negative); Color,Urine Dark Brown; Glucose,Urine (UA) Negative (Negative); Ketones,Urine 4+ (Negative); Leukocyte Esterase,Urine Small (Negative); Mucus,Urine Many /hpf; Nitrite,Urine Negative (Negative); Protein,Urine 3+ (Negative); RBC,Urine >182 /hpf (0-5); Squamous Epithelial Cell,Urine 5 /hpf (0-4); WBC,Urine 24 /hpf (0-5)
--- NOTE | 2021-08-24 13:48 | ED ---
General Adult HPI - General Chief complaint: Vaginal Bleeding Stated complaint: 12wks/Poss Miscarriage Time Seen by Provider: 08/24/21 11:12 Source: patient Mode of arrival: ambulatory Limitations: no limitations - History of Present Illness Initial comments: Patient is a 21-year-old female currently 13 weeks , presenting with chief complaint of vaginal bleeding and pelvic cramping. Patient states that this was sudden in onset while sitting on the couch this morning. Patient has history of miscarriage. She is currently being treated for UTI with Keflex. She denies any nausea, vomiting, upper abdominal pain, chest pain, shortness of breath, back pain, dysuria, hematuria, fever, chills, preceding vaginal discharge. - Related Data Home Medications Medication Instructions Recorded Confirmed Acetaminophen Tab [Tylenol] 650 mg PO Q4H PRN 08/24/21 08/24/21 Cephalexin [Keflex] 500 mg PO QID 08/24/21 08/24/21 Allergies Allergy/AdvReac Type Severity Reaction Status Date / Time cat dander Allergy Dyspnea Verified 08/24/21 12:13 Review of Systems ROS Statement: Those systems with pertinent positive or pertinent negative responses have been documented in the HPI. ROS Other: All systems not noted in ROS Statement are negative. Past Medical History Past Medical History: No Reported History Additional Past Medical History / Comment(s): fx right leg at age 1 yrs old, casted, anemia History of Any Multi-Drug Resistant Organisms: None Reported Past Surgical History: Appendectomy Additional Past Anesthesia/Blood Transfusion Reaction / Comment(s): never had surgery Past Psychological History: Bipolar Smoking Status: Vaper Past Alcohol Use History: None Reported Past Drug Use History: Marijuana - Past Family History Mother Family Medical History: No Reported History Father Family Medical History: Diabetes Mellitus, Hypertension General Exam Limitations: no limitations General appearance: alert, in no apparent distress Head exam: Present: atraumatic, normocephalic, normal inspection Eye exam: Present: normal appearance, EOMI. Absent: scleral icterus Neck exam: Present: normal inspection Respiratory exam: Present: normal lung sounds bilaterally. Absent: respiratory distress, wheezes, rales, rhonchi, stridor Cardiovascular Exam: Present: regular rate, normal rhythm, normal heart sounds. Absent: systolic murmur, diastolic murmur, rubs, gallop, clicks GI/Abdominal exam: Present: soft, tenderness (B/L pelvis), normal bowel sounds. Absent: distended, guarding, rebound, rigid Back exam: Absent: CVA tenderness (R), CVA tenderness (L) Neurological exam: Present: alert, oriented X3, CN II-XII intact Psychiatric exam: Present: normal affect, normal mood Skin exam: Present: warm, dry, intact, normal color. Absent: rash Course Vital Signs 08/24/21 08/24/21 10:52 15:16 Temperature 98.1 F 98.0 F Pulse Rate 105 H 92 Respiratory 18 18 Rate Blood Pressure 115/76 104/63 O2 Sat by Pulse 96 96 Oximetry Medical Decision Making - Medical Decision Making Patient is a 21-year-old female currently 13 weeks presenting with chief complaint of vaginal bleeding. She states she was sitting on the couch today when she experienced sudden onset cramping and bleeding. She is currently being treated with Keflex for UTI. On examination there is mild tenderness on palpation over the pelvis. Urine is remarkable for UTI, when asked patient stated that she only started taking Keflex today. Ultrasound shows single live intrauterine gestation corresponding to 13 weeks and 5 days. heart tones are 144. I explained to patient that at this time findings are stable, however she must follow up with [facility] P[facility] INSPECTOR to ensure that they are still stable in the coming days. Follow-up with SEAT PACK INSPECTOR in one to 2 days. Continue taking Keflex as prescribed by your SEAT PACK INSPECTOR. I educated her on return parameters and alarm symptoms. Report back to ER with any worsening symptoms. I answered all questions. Patient conveyed verbal understanding and agreed to the plan. My attending is Dr. Lama. - Lab Data Result diagrams: 08/24/21 11:37 08/24/21 11:37 Lab Results 08/24/21 08/24/21 08/24/21 Range/Units 11:37 11:37 11:37 WBC 4.5 (3.8-10.6) k/uL RBC 3.95 (3.80-5.40) m/uL Hgb 12.7 (11.4-16.0) gm/dL Hct 37.4 (34.0-46.0) % MCV 94.8 (80.0-100.0) fL MCH 32.3 (25.0-35.0) pg MCHC 34.0 (31.0-37.0) g/dL RDW 11.7 (11.5-15.5) % Plt Count 261 (150-450) k/uL MPV 7.3 Neutrophils % 65 % Lymphocytes % 24 % Monocytes % 8 % Eosinophils % 0 % Basophils % 1 % Neutrophils # 2.9 (1.3-7.7) k/uL Lymphocytes # 1.1 (1.0-4.8) k/uL Monocytes # 0.4 (0-1.0) k/uL Eosinophils # 0.0 (0-0.7) k/uL Basophils # 0.0 (0-0.2) k/uL Sodium 136 L (137-145) mmol/L Potassium 3.3 L (3.5-5.1) mmol/L Chloride 99 (98-107) mmol/L Carbon Dioxide 25 (22-30) mmol/L Anion Gap 12 mmol/L BUN 9 (7-17) mg/dL Creatinine 0.64 (0.52-1.04) mg/dL Est GFR (CKD-EPI)AfAm >90 (>60 ml/min/1.73 sqM) Est GFR (CKD-EPI)NonAf >90 (>60 ml/min/1.73 sqM) Glucose 86 (74-99) mg/dL Calcium 8.9 (8.4-10.2) mg/dL Total Bilirubin 0.4 (0.2-1.3) mg/dL AST 25 (14-36) U/L ALT 15 (4-34) U/L Alkaline Phosphatase 46 (38-126) U/L Total Protein 7.6 (6.3-8.2) g/dL Albumin 4.4 (3.5-5.0) g/dL HCG, Quant 124153.0 mIU/mL Urine Color Dark Brown Urine Appearance Cloudy H (Clear) Urine pH 6.0 (5.0-8.0) Ur Specific [place] 1.030 (1.001-1.035) Urine Protein 3+ H (Negative) Urine Glucose (UA) Negative (Negative) Urine Ketones 4+ H (Negative) Urine Blood Large H (Negative) Urine Nitrite Negative (Negative) Urine Bilirubin Negative (Negative) Urine Urobilinogen 6.0 (<2.0) mg/dL Ur Leukocyte Esterase Small H (Negative) Urine RBC >182 H (0-5) /hpf Urine WBC 24 H (0-5) /hpf Ur Squamous Epith Cells 5 H (0-4) /hpf Urine Bacteria Rare H (None) /hpf Urine Mucus Many H (None) /hpf Blood Type Blood Type Recheck Bld Type Recheck Status Antibody Screen Spec Expiration Date 08/24/21 Range/Units 11:37 WBC (3.8-10.6) k/uL RBC (3.80-5.40) m/uL Hgb (11.4-16.0) gm/dL Hct (34.0-46.0) % MCV (80.0-100.0) fL MCH (25.0-35.0) pg MCHC (31.0-37.0) g/dL RDW (11.5-15.5) % Plt Count (150-450) k/uL MPV Neutrophils % % Lymphocytes % % Monocytes % % Eosinophils % % Basophils % % Neutrophils # (1.3-7.7) k/uL Lymphocytes # (1.0-4.8) k/uL Monocytes # (0-1.0) k/uL Eosinophils # (0-0.7) k/uL Basophils # (0-0.2) k/uL Sodium (137-145) mmol/L Potassium (3.5-5.1) mmol/L Chloride (98-107) mmol/L Carbon Dioxide (22-30) mmol/L Anion Gap mmol/L BUN (7-17) mg/dL Creatinine (0.52-1.04) mg/dL Est GFR (CKD-EPI)AfAm (>60 ml/min/1.73 sqM) Est GFR (CKD-EPI)NonAf (>60 ml/min/1.73 sqM) Glucose (74-99) mg/dL Calcium (8.4-10.2) mg/dL Total Bilirubin (0.2-1.3) mg/dL AST (14-36) U/L ALT (4-34) U/L Alkaline Phosphatase (38-126) U/L Total Protein (6.3-8.2) g/dL Albumin (3.5-5.0) g/dL HCG, Quant mIU/mL Urine Color Urine Appearance (Clear) Urine pH (5.0-8.0) Ur Specific [place] (1.001-1.035) Urine Protein (Negative) Urine Glucose (UA) (Negative) Urine Ketones (Negative) Urine Blood (Negative) Urine Nitrite (Negative) Urine Bilirubin (Negative) Urine Urobilinogen (<2.0) mg/dL Ur Leukocyte Esterase (Negative) Urine RBC (0-5) /hpf Urine WBC (0-5) /hpf Ur Squamous Epith Cells (0-4) /hpf Urine Bacteria (None) /hpf Urine Mucus (None) /hpf Blood Type O Positive Blood Type Recheck O Pos Bld Type Recheck Status No Antibody Screen NEGATIVE Spec Expiration Date 08/27/20212336 Disposition Clinical Impression: Subchorionic bleed, Threatened Disposition: HOME SELF-CARE Condition: Good Instructions (If sedation given, give patient instructions): Threatened Miscarriage (ED) Additional Instructions: Follow up with your SEAT PACK INSPECTOR in 1-2 days. Report back to ER if any worsening symptoms. Continue taking medication for UTI as prescribed by your SEAT PACK INSPECTOR. Is patient prescribed a controlled substance at d/c from ED?: No Referrals: None,Stated [Primary Care Provider] - 1-2 days Time of Disposition: 15:02
[2021-08-24 15:27] VITALS: BP 104/63; PULSE 92; TEMP 98
== END 2021-08-24 15:25 | disposition home or self-care (01) ==
LOC: EC 09:50
DX: O20.0 Threatened abortion (principal); Z87.59 Personal history of other complications of pregnancy, childbirth and the puerperium; F17.209 Nicotine dependence, unspecified, with unspecified nicotine-induced disorders; Z91.09 Other allergy status, other than to drugs and biological substances; Z3A.13 13 weeks gestation of pregnancy
CPT/HCPCS: 36415; 76801; 80053; 81001; 84702; 85025; 86850; 86900; 86901; 87086

== ENCOUNTER → 2021-09-07 | Outpatient (CLI) | payer OTHER ==
--- NOTE | 2021-09-08 06:13 | US ---
EXAMINATION TYPE: US OB >= 14 wk fetus DATE OF EXAM: 09/07/2021 COMPARISON: Prior ultrasound 2 weeks ago CLINICAL HISTORY: z36.89 confirm age and dates. Patient was in ER a few days ago when "someone" from OB floor did US and told her she had subchorionic bleed. US department did not do scan. milagro eugenia ralphAmada A1 TECHNIQUE: OBTA GESTATIONAL AGE / DATING Physician Established: (15 weeks/1 days) EDC: 02/28/2022 Dates by LMP: (15 weeks/1 days) EDC: 02/28/2022 Dates by First Scan: No previous this is first scan Dates by Current Scan: (16 weeks/0 days) EDC: 02/22/2022 SURVEY IUP: Single PLACENTA: Anterior PREVIA: No Previa SOHA: 13.5 cm Normal CERVICAL LENGTH: 2.6 cm BIOMETRY PRESENTATION: Vertex LIE: Longitudinal BPD: 3.1 cm 15 weeks / 6 days HC: 12.1 cm 16 weeks / 1 days AC: 10.1 cm 16 weeks / 1 days FL: 1.9 cm 15 weeks / 5 days ESTIMATED WEIGHT IN GRAMS: 138 grams ESTIMATED WEIGHT IN LBS/OZ: 0 lbs. 5 oz. WEIGHT PERCENTAGE BASED ON ESTABLISHED DATES: 87% HC/AC: 1.2 Normal FL/AC: 19 Normal HEART RATE: 140 bpm RHYTHM: Normal No signs of subchorionic bleed noted on today's exam. Anechoic sac like area by a band do es appear on the right side of gestational sac. Amniotic band issue versus other etiology Single live intrauterine gestation is redemonstrated. Cervical length lower limits of normal. No plac enta previa. Normal cephalad presentation. Estimated amniotic fluid index within normal limits. biometric measurements congruent and within normal limits with interval satisfactory progression. No suspicious fluid collection or subchorionic hemorrhage noted. IMPRESSION: As above.
== END | disposition home or self-care (01) ==
LOC: RADUSWWP 18:23
PROVIDERS: ATTEND Obstetrics & Gynecology
DX: Z36.89 Encounter for other specified antenatal screening (principal); Z3A.15 15 weeks gestation of pregnancy
CPT/HCPCS: 76805

== ENCOUNTER 2022-02-23 20:48 | Outpatient (CLI) | payer BC, OTHER ==
[2022-02-23 22:51] VITALS: BP 133/83; PULSE 101; RESP 16; TEMP 97.5
--- NOTE | 2022-02-25 02:32 | P.MSEPDOC ---
Presenting Problems - Arrival Data Date of Arrival on Unit: 02/23/22 Time of Arrival on Unit: 20:48 Mode of Transport: Ambulatory - Complaint OB-Reason for Admission/Chief Complaint: Rule Out SROM Comment: Patient states that she feels like she is leaking fluid since yesterday after her cervical exam in office. Patient also stated when asked by RN in triage that she has not felt baby kick as much as usual today. Medical History - Information : 2 Para: 0 Term: 0 : 0 Abortions: Spontaneous or Elective: 1 Number of Living Children: 0 - Gestational Age Gestational Age by BRICE (wks/days): 39 Weeks and 2 Days - History Complications: No Care Comment: Patient stated she had a early subchorionic hemorrhage early in the that has resolved. Review of Systems - Review of Systems Constitutional: No problems Breast: No problems ENT: No problems Cardiovascular: No problems Respiratory: No problems Gastrointestinal: No problems Genitourinary: No problems Musculoskeletal: No problems Neurological: No problems Skin: No problems Vital Signs - Temperature Temperature: 97.5 F Temperature Source: Temporal Artery Scan - Pulse Pulse Oximetery Pulse Rate: 101 Pulse Assessment Method: Auscultation - Respirations Respiratory Rate: 16 Oxygen Delivery Method: Room Air O2 Sat by Pulse Oximetry: 96 - Blood Pressure Right Arm Blood Pressure: 133/83 Blood Pressure Mean: 99 Blood Pressure Source: Automatic Cuff Medical Screen Scoring - Cervical Exam Dilation (cm): 4 Effacement (%): 80 Station: -1 Membranes: Intact - Uterine Contractions Frequency From (mins): 2 Frequency To (mins): 10 Duration From (seconds): 30 Duration To (seconds): 70 Intensity: Mild Resting: Soft to palpation - Assessment - Baby A Baseline FHR: 120 Heart Rate - NICHD Category: Category I (Normal) NST: Reactive Physician Notification - Physician Notified Physician Notified Date: 02/23/22 Physician Notified Time: 22:08 Physician: Pricila Cordova Order Received: Yes - Notification Comment Comment: Orders to Discharge patient, patient to perform kick counts and educated on fluid leaking. Maternal Triage Index - Non-Urgent/Priority 4 Non-Urgent Priority 4: Yes Criteria Met for Priority 4: Spoke with Dr. Cordova via telephone, Dr. Cordova aware of maternal and status,. vitals, FHR, contractions, initial cervical exam and cervical exam 1 hour later same. measurements. patient HX, amnisure negative. Disposition - Disposition OB Disposition: Triage Discharge Date: 02/23/22 Discharge Time: 22:14 I agree with the RN Medical Screening Exam: Yes Case reviewed; plan agreed upon as documented in EMR&OBIX.: Yes Diagnosis: FALSE LABOR AT OR AFTER 37 COMPLETED WEEKS OF GESTATION
== END 2022-02-23 22:14 | disposition home or self-care (01) ==
LOC: FBPOP 20:48
PROVIDERS: ATTEND Obstetrics & Gynecology
DX: O47.03 False labor before 37 completed weeks of gestation, third trimester (principal); Z91.09 Other allergy status, other than to drugs and biological substances
CPT/HCPCS: 59025; 84112; 99213

== ENCOUNTER 2022-02-25 00:42 | Inpatient (IN) | payer BC, OTHER ==
[2022-02-25] MEDS ORDERED: TERBUTALINE 1 MG/ML VIAL SQ PRN (00:54)
[2022-02-25] MEDS ORDERED: LIDOCAINE 0.5% (PF) 5 MG/ML (50 ML SDV) SQ PRN (00:54)
[2022-02-25] MEDS ORDERED: OXYTOCIN 30 UNITS/500 ML NS 30 UNIT in SALINE 1 500ML.BAG IV SCH ×3 (01:00→05:03)
[2022-02-25] MEDS: LACTATED RINGERS 1,000 ML IV SCH ×2 (01:11→02:16)
[2022-02-25 01:25] LABS: Basophils % (A) 0 %; Eosinophils # (A) 0.1 k/uL (0-0.7); Eosinophils % (A) 1 %; HCT 36.8 % (34.0-46.0); Lymphocytes # (A) 1.9 k/uL (1.0-4.8); Lymphocytes % (A) 21 %; MCHC 35.3 g/dL (31.0-37.0); MCV 96.4 fL (80.0-100.0); Mean Platelet Volume 9.7; Monocytes # (A) 0.6 k/uL (0-1.0); Monocytes % (A) 6 %; Neutrophils # (A) 6.5 k/uL (1.3-7.7); Neutrophils % (A) 70 %; Platelet Count 158 k/uL (150-450); RBC 3.82 m/uL (3.80-5.40); RDW 12.3 % (11.5-15.5); WBC 9.3 k/uL (3.8-10.6)
[2022-02-25] MEDS ORDERED: SODIUM CHLORIDE 0.9% 100 ML BAG ONE (01:50)
[2022-02-25] MEDS ORDERED: fentaNYL (PF) 50 MCG/ML 5 ML AMP ONE (01:50)
[2022-02-25] MEDS ORDERED: ROPIVACAINE 5 MG/ML 20 ML AMPULE ONE (01:50)
--- NOTE | 2022-02-25 02:17 | P.HPOB ---
History of Present Illness H&P Date: 02/25/22 Chief Complaint: Contractions This is a 21-year-old female 2 para 0 with an estimated date of confinement of 02/28/2022, estimated gestational age of 39-4/7 weeks, who presents to labor and delivery with complaints of contractions that have been going on for a couple days but became stronger at about 11:30 last night. Upon arrival to triage she did have spontaneous rupture membranes with blood-tinged clear fluid. course has been essentially uncomplicated. labs: Group B streptococcus-negative One hour Glucola-60 Quad screen-negative Hepatitis B surface antigen-negative RPR-nonreactive Rubella-immune Blood type-O positive Antibody screen-negative HIV-nonreactive Hemoglobin-12.8 Toxoplasma screen-negative Random glucose-52 GC/chlamydia/Trichomonas-negative Obstetrical history: . History of 1 spontaneous miscarriage. Gynecologic history: No history of sexual transmitted diseases. Social history: She is single. She is currently unemployed. Review of Systems Constitutional: Denies chills, Denies fever Eyes: denies blurred vision, denies pain Ears, nose, mouth and throat: Denies headache, Denies sore throat Cardiovascular: Denies chest pain, Denies shortness of breath Respiratory: Denies cough Gastrointestinal: Reports abdominal pain (Contractions) Genitourinary: Reports pelvic pain, Reports Musculoskeletal: Reports low back pain Integumentary: Denies pruritus, Denies rash Neurological: Denies numbness, Denies weakness Psychiatric: Denies anxiety, Denies depression Past Medical History Additional Past Medical History / Comment(s): fx right leg at age 1 yrs old, casted, anemia History of Any Multi-Drug Resistant Organisms: None Reported Past Surgical History: Appendectomy Additional Past Anesthesia/Blood Transfusion Reaction / Comment(s): never had surgery Past Psychological History: No Psychological Hx Reported Smoking Status: Never smoker Past Alcohol Use History: None Reported Past Drug Use History: Marijuana (Used marijuana prior to ) - Past Family History Mother Family Medical History: No Reported History Father Family Medical History: Diabetes Mellitus, Hypertension Medications and Allergies Home Medications Medication Instructions Recorded Confirmed Type No Known Home Medications 02/23/22 02/25/22 History Allergies Allergy/AdvReac Type Severity Reaction Status Date / Time cat dander Allergy Dyspnea Verified 02/25/22 00:45 Exam Osteopathic Statement: *. No significant issues noted on an osteopathic structural exam other than those noted in the History and Physical/Consult. Intake and Output 02/24/22 02/24/22 02/25/22 14:59 22:59 06:59 Other: Weight 100.244 kg HEENT: Within normal limits Heart: Regular rate and rhythm Lungs: Clear to auscultation bilaterally Abdomen: Cervix: 5-6 cm/80%/-2 station with positive amnisure with clear fluid noted. Extremities: Negative Homans heart tones: Category 1 Contractions: Every 2-3 minutes Results Result Diagrams: 02/25/22 01:15 Assessment and Plan (1) 39 weeks gestation of Current Visit: Yes Status: Acute Code(s): Z3A.39 - 39 WEEKS GESTATION OF SNOMED Code(s): 00985832 Plan: Admission for active labor. Epidural anesthesia. Oxytocin augmentation of labor if necessary. Expectant management.
[2022-02-25] MEDS ORDERED: TRANEXAMIC ACID IN NACL,ISO-OS 1,000 MG in EMPTY BAG 1 BAG IV PRN (02:21)
[2022-02-25] MEDS ORDERED: miSOPROStoL 200 MCG TAB PO PRN (02:21)
[2022-02-25] MEDS ORDERED: METHYLERGONOVINE 0.2 MG/ML 1 ML AMP IM PRN (02:21)
[2022-02-25] MEDS ORDERED: CARBOPROST TROMETHAMINE 250 MCG/ML 1 ML AMP IM PRN (02:21)
[2022-02-25] MEDS ORDERED: OXYTOCIN 10 UNIT/ML 1 ML VIAL IM PRN (02:21)
--- NOTE | 2022-02-25 02:34 | P.MSEPDOC ---
Presenting Problems - Arrival Data Date of Arrival on Unit: 02/25/22 Time of Arrival on Unit: 00:42 Mode of Transport: Wheelchair - Complaint OB-Reason for Admission/Chief Complaint: Possible Onset of Labor Medical History - Information : 2 Para: 0 Term: 0 : 0 Abortions: Spontaneous or Elective: 1 Number of Living Children: 0 - Gestational Age Gestational Age by BRICE (wks/days): 39 Weeks and 4 Days Review of Systems - Review of Systems Constitutional: No problems Breast: No problems ENT: No problems Cardiovascular: No problems Respiratory: No problems Gastrointestinal: No problems Genitourinary: No problems Musculoskeletal: No problems Neurological: No problems Skin: No problems Medical Screen Scoring - Cervical Exam Dilation (cm): 6 Effacement (%): 90 Station: -2 Membranes: Ruptured - Uterine Contractions Intensity: Moderate Resting: Soft to palpation - Assessment - Baby A Baseline FHR: 130 Heart Rate - NICHD Category: Category I (Normal) Physician Notification - Physician Notified Physician Notified Date: 02/25/22 Physician Notified Time: 01:04 Physician: Pricila Cordova Order Received: Yes - Notification Comment Comment: Admit with standard labor orders Maternal Triage Index - Maternal Triage Index Presenting for scheduled procedure w/no complaint: No - Stat/Priority 1 Stat Priority 1: No - Urgent/Priority 2 Urgent Priority 2: No - Prompt/Priority 3 Prompt Priority 3: No - Non-Urgent/Priority 4 Non-Urgent Priority 4: Yes Criteria Met for Priority 4: Pt is a BRICE [birth year] here at 39.4 weeks of gestation with c/o UC's. Disposition - Disposition OB Disposition: Admit, LDRP Suite Transferred to:: St 6 I agree with the RN Medical Screening Exam: Yes Case reviewed; plan agreed upon as documented in EMR&OBIX.: Yes Diagnosis: ENCOUNTER FOR FULL-TERM UNCOMPLICATED DELIVERY
[2022-02-25] MEDS ORDERED: diphenhydrAMINE 50 MG CAP PO PRN (05:03)
[2022-02-25] MEDS ORDERED: ZOLPIDEM 5 MG TAB PO PRN (05:03)
[2022-02-25] MEDS ORDERED: BENZOCAINE/MENTHOL SPRAY 1 GM/SPRAY AEROSOL TOPICAL PRN (05:03)
[2022-02-25] MEDS ORDERED: diphenhydrAMINE 50 MG/ML 1 ML VIAL IVP PRN ×2 (05:03)
[2022-02-25] MEDS ORDERED: diphenhydrAMINE 25 MG CAP PO PRN (05:03)
[2022-02-25] MEDS ORDERED: HYDROCORTISONE 2.5% RECTAL CREAM 30 GM TUBE RECTAL PRN (05:03)
[2022-02-25] MEDS ORDERED: ACETAMINOPHEN TAB 325 MG TAB PO PRN (05:03)
[2022-02-25] MEDS ORDERED: SIMETHICONE 80 MG CHEWABLE PO PRN (05:03)
[2022-02-25] MEDS ORDERED: LANOLIN CREAM 5 GM TUBE TOPICAL PRN (05:03)
--- NOTE | 2022-02-25 05:07 | P.PROBDLV ---
Vaginal Delivery Note - . Vaginal Delivery Note: The patient progressed to complete dilation after oxytocin augmentation of labor and epidural anesthesia. Once she reached complete, she began pushing. 's head came to a crown. With one further push, the infant's head delivered across the perineum followed by the anterior shoulder. Baby was in occiput posterior lie. The remainder the infant easily delivered and was placed on mother's abdomen. Nose and mouth were bulb suctioned. Cord was clamped and cut. Infant was allowed to harrison with mother with skin to skin. Placenta delivered shortly thereafter, intact, with a three-vessel cord. Uterus contracted fairly well after oxytocin was given and uterine massage was carried out. Inspection of the perineum revealed a second-degree perineal laceration. This area was anesthetized with 1% lidocaine and then sutured with 3-0 and 2-0 Vicryl suture in the usual multilayer fashion. Estimated blood loss is approximately 200 mL's. Both mother and infant are in stable condition.
[2022-02-25 06:39] VITALS: RESP 16
[2022-02-25] MEDS: SENNOSIDES-DOCUSATE SODIUM 1 EACH TAB PO SCH ×2 (10:02→20:50)
[2022-02-25] MEDS: IBUPROFEN 600 MG TAB PO PRN ×2 (11:22→20:49)
[2022-02-25 16:43] VITALS: PULSE 86
[2022-02-26 04:30] LABS: Basophils % (A) 0 %; Eosinophils # (A) 0.1 k/uL (0-0.7); Eosinophils % (A) 1 %; HCT 30.3 % (34.0-46.0); HGB 10.4 gm/dL (11.4-16.0); Lymphocytes # (A) 1.6 k/uL (1.0-4.8); Lymphocytes % (A) 16 %; MCHC 34.4 g/dL (31.0-37.0); MCV 95.9 fL (80.0-100.0); Mean Platelet Volume 10.5; Monocytes # (A) 0.5 k/uL (0-1.0); Monocytes % (A) 5 %; Neutrophils # (A) 7.7 k/uL (1.3-7.7); Neutrophils % (A) 76 %; Platelet Count 127 k/uL (150-450); RBC 3.16 m/uL (3.80-5.40); RDW 12.7 % (11.5-15.5)
[2022-02-26] MEDS: SENNOSIDES-DOCUSATE SODIUM 1 EACH TAB PO SCH (07:31)
[2022-02-26 07:52] VITALS: BP 122/73; TEMP 97.3
--- NOTE | 2022-02-26 09:27 | P.DS ---
Providers Date of admission: 02/25/22 01:00 Expected date of discharge: 02/26/22 Attending physician: Pricila Cordova Primary care physician: Stated None - Discharge Diagnosis(es) (1) 39 weeks gestation of Current Visit: Yes Status: Acute Hospital Course: This is a 21-year-old female 2 para 0 at 39-4/7 weeks who presents to labor and delivery with complaints of contractions. She delivered vaginally a viable male infant on 02/25/2022 with scores of 8 at 1 minute and 9 at 5 minutes and infant weight of 7 lbs. 11 oz. Her course has been uncomplicated. Lochia has been decreasing. Her pain is been well controlled. She is breast-feeding. Vital signs are stable. Abdomen is soft with fundus firm and nontender. Extremities show negative Homans. Impression is status post vaginal delivery day #1. Plan is to discharge home later today. Routine instructions are given. She will be given a prescription for ibuprofen. She states she has a breast pump. She is advised to follow up in the office in 6 weeks for a check. She is advised to call the office if she has any further questions or concerns prior to her appointment time. Procedures: Spontaneous vaginal delivery of a viable male infant on 02/25/2022 Patient Condition at Discharge: Stable Plan - Discharge Summary New Discharge Prescriptions: New Ibuprofen [Motrin] 600 mg PO Q6HR PRN #60 tab PRN Reason: Mild Pain (Scale 1 To 3) Discharge Medication List Ibuprofen [Motrin] 600 mg PO Q6HR PRN #60 tab 02/26/22 [Rx] Follow up Appointment(s)/Referral(s): Pricila Cordova DO [Doctor of Osteopathic Medicine] - 6 Weeks Activity/Diet/Wound Care/Special Instructions: Instructions 1. Do not begin any exercise program for 3 weeks. 2. Do not resume sexual relations for 3 weeks or longer if uncomfortable. 3. You may take tub baths or showers at any time. 4. You may use tampons if desired after 3 weeks. 5. Keep the area of episiotomy (stitches) clean and dry. 6. If you are not nursing, wear a good fitting, supportive bra during the day and limit fluid intake for at least 1 week to prevent breast engorgement. 7. Call the office, [phone], within the next week to make appointment for your 6 week checkup if it has not already been made. 8. Report any of the following occurrences to the doctor promptly: a. Heavy, excessive bleeding b. Chills, fever c. Burning or frequency of urination d. Pain or redness and breasts if nursing e. Increasing pain or swelling in episiotomy (stitches). In addition to the above instructions, the following additional should be followed: 1. No heavy lifting or straining (exercising) until after 6 week checkup. 2. Keep abdominal incision clean and dry: You may wear a dressing if more comfortable. 3. Make office appointment for 10 days after going home or as instructed by her doctor. Discharge Disposition: HOME SELF-CARE
== END 2022-02-26 15:40 | disposition home or self-care (01) | DRG 807 ==
LOC: FBPOP 00:42 → 4FBP 01:00
PROVIDERS: ADMIT Obstetrics & Gynecology; ATTEND Obstetrics & Gynecology
PROC: 10E0XZZ Delivery of Products of Conception, External Approach (ICD-10-PCS; principal; 2022-02-25)
PROC: 0KQM0ZZ Repair Perineum Muscle, Open Approach (ICD-10-PCS; 2022-02-25)
PROC: 4A0HXCZ Measurement of Products of Conception, Cardiac Rate, External Approach (ICD-10-PCS; 2022-02-25)
PROC: 3E033VJ Introduction of Other Hormone into Peripheral Vein, Percutaneous Approach (ICD-10-PCS; 2022-02-25)
DX: O42.92 Full-term premature rupture of membranes, unspecified as to length of time between rupture and onset of labor (principal); Z37.0 Single live birth; O26.893 Other specified pregnancy related conditions, third trimester; O70.1 Second degree perineal laceration during delivery; O99.02 Anemia complicating childbirth; Z3A.39 39 weeks gestation of pregnancy; L23.81 Allergic contact dermatitis due to animal (cat) (dog) dander; D64.9 Anemia, unspecified
CPT/HCPCS: 84112; 85025; 86850; 86900; 86901; 99213

== ENCOUNTER 2023-04-24 13:23 | Outpatient (CLI) | payer BC, OTHER ==
[2023-04-24 14:26] LABS: Appearance,Urine Clear (Clear); Bacteria,Urine Rare /hpf; Bilirubin,Urine Negative (Negative); Blood,Urine Negative (Negative); Color,Urine Light Yellow; Glucose,Urine (UA) Negative (Negative); Ketones,Urine Negative (Negative); Leukocyte Esterase,Urine Moderate (Negative); Mucus,Urine Rare /hpf; Nitrite,Urine Negative (Negative); PH, Urine 7.5 (5.0-8.0); Protein,Urine Negative (Negative); RBC,Urine 1 /hpf (0-5); Specific Gravity,Urine 1.017 (1.001-1.035); Squamous Epithelial Cell,Urine 2 /hpf (0-4); Urobilinogen,Urine <2.0 mg/dL (<2.0); WBC,Urine 8 /hpf (0-5)
[2023-04-24 15:03] VITALS: BP 107/60; PULSE 76; RESP 16; TEMP 97
--- NOTE | 2023-05-19 11:12 | P.MSEPDOC ---
Presenting Problems - Arrival Data Date of Arrival on Unit: 04/24/23 Time of Arrival on Unit: 13:23 Mode of Transport: Ambulatory - Complaint OB-Reason for Admission/Chief Complaint: Decreased Movement, Pain Comment: pt to triage c/o not feeling baby move at all for the last 4-5 days. Pt also has been having pelvic pain for the last few weeks, that is worse at work while standing Medical History - Information : 3 Para: 1 Term: 1 : 0 Abortions: Spontaneous or Elective: 0 Number of Living Children: 1 - Gestational Age Gestational Age by BRICE (wks/days): 20 Weeks and 2 Days Review of Systems - Review of Systems Constitutional: No problems Breast: No problems ENT: No problems Cardiovascular: No problems Respiratory: No problems Gastrointestinal: No problems Genitourinary: No problems Musculoskeletal: No problems Neurological: No problems Skin: No problems Vital Signs - Temperature Temperature: 97.0 F Temperature Source: Temporal Artery Scan - Pulse Right Sitting Pulse Rate: 76 Pulse Assessment Method: Automatic Cuff - Respirations Respiratory Rate: 16 Oxygen Delivery Method: Room Air - Blood Pressure Right Arm Blood Pressure: 107/60 Blood Pressure Mean: 75 Blood Pressure Source: Automatic Cuff Physician Notification - Physician Notified Physician Notified Date: 04/24/23 Physician Notified Time: 14:00 Physician: Cliff Matta Order Received: Yes (d/c home) Maternal Triage Index - Non-Urgent/Priority 4 Non-Urgent Priority 4: Yes Criteria Met for Priority 4: FHT auscultated 140-150 bpm, no contractions, vitals wnl Disposition - Disposition OB Disposition: Physician follow up in office, Discharge to home Discharge Date: 04/24/23 Discharge Time: 14:37 I agree with the RN Medical Screening Exam: Yes Physician's MSE Comment: I have neither seen and examined the patient. Case reviewed; plan agreed upon as documented in EMR&OBIX.: Yes Diagnosis: RELATED CONDITIONS, UNSPECIFIED, SECOND TRIMESTER
== END 2023-04-24 14:37 | disposition home or self-care (01) ==
LOC: FBPOP 13:23
PROVIDERS: ATTEND Obstetrics & Gynecology
DX: O36.8120 Decreased fetal movements, second trimester, not applicable or unspecified (principal); O26.892 Other specified pregnancy related conditions, second trimester; R10.2 Pelvic and perineal pain; Z3A.20 20 weeks gestation of pregnancy; Z91.09 Other allergy status, other than to drugs and biological substances
CPT/HCPCS: 81001; 99213

== ENCOUNTER 2023-09-15 11:25 | Inpatient (IN) | payer BC, OTHER ==
[2023-09-15] MEDS ORDERED: LIDOCAINE 0.5% (PF) 5 MG/ML (50 ML SDV) SQ PRN (11:43)
[2023-09-15] MEDS ORDERED: OXYTOCIN 10 UNIT/ML 1 ML VIAL IM PRN (11:43)
[2023-09-15] MEDS ORDERED: METHYLERGONOVINE 0.2 MG/ML 1 ML AMP IM PRN (11:43)
[2023-09-15] MEDS ORDERED: TERBUTALINE 1 MG/ML VIAL SQ PRN (11:43)
[2023-09-15] MEDS ORDERED: CARBOPROST TROMETHAMINE 250 MCG/ML 1 ML AMP IM PRN (11:43)
[2023-09-15] MEDS ORDERED: miSOPROStoL 200 MCG TAB PO PRN (11:43)
[2023-09-15] MEDS ORDERED: TRANEXAMIC 1,000 MG/100ML-NACL 1,000 MG in EMPTY BAG 1 BAG IV PRN (11:43)
[2023-09-15] MEDS: LACTATED RINGERS 1,000 ML IV SCH (12:12)
[2023-09-15] MEDS: PENICILLIN G POTASSIUM 5,000,000 UNIT in DEXTROSE 5% IN WATER 100 ML IVPB STA (12:18)
[2023-09-15 12:21] LABS: Basophils % (A) 0 %; Eosinophils # (A) 0.1 k/uL (0-0.7); Eosinophils % (A) 1 %; HCT 33.8 % (34.0-46.0); HGB 10.8 gm/dL (11.4-16.0); Lymphocytes # (A) 1.4 k/uL (1.0-4.8); Lymphocytes % (A) 21 %; MCHC 31.9 g/dL (31.0-37.0); MCV 87.9 fL (80.0-100.0); Mean Platelet Volume 8.7; Monocytes # (A) 0.4 k/uL (0-1.0); Monocytes % (A) 5 %; Neutrophils # (A) 4.7 k/uL (1.3-7.7); Neutrophils % (A) 70 %; Platelet Count 183 k/uL (150-450); RBC 3.85 m/uL (3.80-5.40); RDW 14.4 % (11.5-15.5); WBC 6.6 k/uL (3.8-10.6)
[2023-09-15] MEDS ORDERED: SODIUM CHLORIDE 0.9% 250 ML BAG ONE (12:31)
[2023-09-15] MEDS ORDERED: fentaNYL (PF) 50 MCG/ML 5 ML AMP ONE (12:31)
[2023-09-15] MEDS ORDERED: ROPIVACAINE 5 MG/ML 30 ML VIAL ONE (12:31)
[2023-09-15] MEDS: PENICILLIN G POTASSIUM 2,500,000 UNIT in DEXTROSE 5% IN WATER 100 ML IVPB SCH (16:00)
[2023-09-15] MEDS: OXYTOCIN 30 UNITS/500 ML NS 30 UNIT in SALINE 1 500ML.BAG IV SCH (17:10)
[2023-09-15] MEDS ORDERED: diphenhydrAMINE 50 MG CAP PO PRN (17:29)
[2023-09-15] MEDS ORDERED: SIMETHICONE 80 MG CHEWABLE PO PRN (17:29)
[2023-09-15] MEDS ORDERED: diphenhydrAMINE 25 MG CAP PO PRN (17:29)
[2023-09-15] MEDS ORDERED: diphenhydrAMINE 50 MG/ML 1 ML VIAL IVP PRN ×2 (17:29)
[2023-09-15] MEDS ORDERED: ZOLPIDEM 5 MG TAB PO PRN (17:29)
[2023-09-15] MEDS ORDERED: LANOLIN CREAM 1 GM TUBE TOPICAL PRN (17:29)
[2023-09-15] MEDS ORDERED: HYDROCORTISONE 2.5% RECTAL CREAM 30 GM TUBE RECTAL PRN (17:29)
[2023-09-15] MEDS ORDERED: ACETAMINOPHEN TAB 325 MG TAB PO PRN (17:29)
--- NOTE | 2023-09-15 17:29 | P.HPOB ---
History of Present Illness H&P Date: 09/15/23 Chief Complaint: leakage of fluid Ms. Zamora is a 23 year old at 40 weeks and 5 days with EDC of 09/10/2023 by 15 weeks US who presented to triage with spontaneous rupture of membranes at 1040 with clear amniotic fluid. She is also feeling regular, painful contractions every 2-4 minutes. The patient's course was complicated by late presentation to care at 16 weeks gestation. The patient also noted that her son is a Cystic Fibrosis carrier. She declines carrier screening for herself. The patient did test positive for GBS during the . The fetus is anticipated to be in the 35%ile by a 32 week growth US. OB history: 1 full term vaginal delivery, male, complicated by anemia history: blood type O positive, antibody screen negative, rubella non- immune, VDRL non-reactive, HBsAg negative, HIV negative, HCV Ab non-reactive, gonorrhea negative, chlamydia negative, 1 hour GTT 176 > 3 hour GTT wnl, GBS positive. s/p TDap in 3rd trimester. Past Medical History Past Medical History: No Reported History Additional Past Medical History / Comment(s): fx right leg at age 1 yrs old, casted, anemia History of Any Multi-Drug Resistant Organisms: None Reported Past Surgical History: Appendectomy Past Anesthesia/Blood Transfusion Reactions: No Reported Reaction Additional Past Anesthesia/Blood Transfusion Reaction / Comment(s): never had surgery Past Psychological History: ADD/ADHD Additional Psychological History / Comment(s): Pr reports ADD-no meds Smoking Status: Never smoker Past Alcohol Use History: None Reported Past Drug Use History: None Reported - Past Family History Mother Family Medical History: No Reported History Father Family Medical History: COPD, Diabetes Mellitus, Hypertension Medications and Allergies Home Medications Medication Instructions Recorded Confirmed Type Vit No.179/Iron/Folic 1 each PO DAILY 04/24/23 09/15/23 History [ Tablet] Allergies Allergy/AdvReac Type Severity Reaction Status Date / Time cat dander Allergy Dyspnea Verified 04/24/23 13:47 Exam Vital Signs Temp Pulse Resp BP Pulse Ox 09/15/23 11:42 97.3 F L 111 H 18 134/60 98 Intake and Output 09/15/23 09/15/23 09/15/23 06:59 14:59 22:59 Other: # Voids 1 Weight 122.016 kg Focused physical exam is performed. This is a healthy-appearing in no apparent distress. Breathing is non-labored. Abdomen is gravid and non-tender. Cervical exam is 3 cm, 50% effacement, -3 station with grossly ruptured membranes based on OB RN's exam. Extremities non-tender and non-edematous. heart tones are Category I and tocometer is graphing contractions every 2-4 minutes. Results Result Diagrams: 09/15/23 12:10 Abnormal Lab Results - Last 24 Hours (Table) 09/15/23 Range/Units 12:10 Hgb 10.8 L (11.4-16.0) gm/dL Hct 33.8 L (34.0-46.0) % Assessment and Plan Assessment: 23 year old at 40 weeks and 5 days presenting with SROM and labor Plan: Admit, epidural prn, IV PCN G for GBS ppx, clear liquid diet, continuous EFM and tocometer, close monitoring of patient. Anticipate vaginal delivery. Time with Patient: Less than 30
--- NOTE | 2023-09-15 17:33 | P.PROBDLV ---
Vaginal Delivery Note - . Vaginal Delivery Note: DATE OF SERVICE: 09/15/2023 PROCEDURE: Normal Vaginal Delivery ATTENDING: Dr. Traci Alfonso MD ESTIMATED BLOOD LOSS: 200 mL FINDINGS: VFI, Apgars 8/9. Weight pending. PROCEDURE: Ms. Zamora is a 23 year old at 40 weeks and 5 days presenting to labor and delivery for SROM for clear amniotic fluid at 1040 and with regular uterine contractions. The has been complicated by GBS positive status. She was given 2 doses of IV PCN G for GBS ppx. The patient received epidural anesthesia per her request. Labor was expectantly managed as the patient was making fast cervical change. The patient was completely dilated at 1700. She pushed twice and brought the head to a crown. A viable female was delivered at 1707. The was placed on the maternal abdomen and bulb suctioned. The was noted to be spontaneously crying. Cord was clamped and cut after a 1-minute delay. The was handed off to the pediatric team. Placenta was delivered whole with gentle cord traction at 1709. Oxytocin was started to facilitate uterine tone. Uterine fundus was found to be firm and below the umbilicus upon fundal massage. Thorough examination of the cervix, vagina, periurethral area, and perineum revealed no lacerations. The bladder was drained with for 50cc. The patient is stable and allowed to begin the bonding process.
[2023-09-15] MEDS: BENZOCAINE/MENTHOL SPRAY 1 GM/SPRAY AEROSOL TOPICAL PRN (18:00)
[2023-09-15] MEDS: SENNOSIDES-DOCUSATE SODIUM 1 EACH TAB PO SCH (19:11)
[2023-09-15] MEDS: MEASLES-MUMPS-RUBELLA VACC/PF 12,500 UNIT/0.5 ML VIAL SQ ONE (20:02)
[2023-09-16] MEDS: IBUPROFEN 600 MG TAB PO PRN (01:12)
[2023-09-16 05:50] LABS: Basophils % (A) 0 %; Eosinophils # (A) 0.1 k/uL (0-0.7); Eosinophils % (A) 1 %; HCT 31.3 % (34.0-46.0); HGB 9.9 gm/dL (11.4-16.0); Hypochromasia Slight; Lymphocytes # (A) 1.4 k/uL (1.0-4.8); Lymphocytes % (A) 16 %; MCH 27.9 pg (25.0-35.0); MCHC 31.6 g/dL (31.0-37.0); MCV 88.4 fL (80.0-100.0); Mean Platelet Volume 8.5; Monocytes # (A) 0.4 k/uL (0-1.0); Monocytes % (A) 4 %; Neutrophils # (A) 6.4 k/uL (1.3-7.7); Neutrophils % (A) 77 %; Platelet Count 181 k/uL (150-450); RBC 3.54 m/uL (3.80-5.40); RDW 14.3 % (11.5-15.5); WBC 8.4 k/uL (3.8-10.6)
--- NOTE | 2023-09-16 07:19 | P.DS ---
Providers Date of admission: 09/15/23 11:45 Expected date of discharge: 09/16/23 Attending physician: Traci Alfonso MD Primary care physician: Stated None Hospital Course: Ms. Zamora is a 23 year old now PPD#1 s/p normal spontaneous vaginal delivery after SROM at home. The patient was GBS positive and received 4+ hours of GBS ppx prior to delivery. The patient is doing well this morning and had no acute events overnight. She has no complaints this morning. She reports minimal lochia, passing flatus, voiding without difficulty, ambulating, and eating/drinking without nausea or vomiting. doing well at bedside, nu rsing well. She denies chest pain, shortness of breathing, fevers, or chills overnight. She denies pain or swelling in the legs. restrictions are reviewed with the patient including pelvic rest for 6 weeks. The patient is encouraged to call the office if she experiences any heavy bleeding, foul- smelling discharge, breast complaints, or any if she has any other concerns. She will follow up in the office with in 6 weeks for exam. All questions are answered. Assessment: 23 year old now PPD#1 s/p Patient Condition at Discharge: Good Plan - Discharge Summary New Discharge Prescriptions: New Acetaminophen Tab [Tylenol] 650 mg PO Q6H PRN #30 tab PRN Reason: Mild Pain (Scale 1 To 3) Ibuprofen [Motrin] 600 mg PO Q6HR PRN #30 tab PRN Reason: Mild Pain (Scale 1 To 3) No Action Vit No.179/Iron/Folic [ Tablet] 1 each PO DAILY Discharge Medication List Vit No.179/Iron/Folic [ Tablet] 1 each PO DAILY 04/24/23 [History] Acetaminophen Tab [Tylenol] 650 mg PO Q6H PRN #30 tab 09/16/23 [Rx] Ibuprofen [Motrin] 600 mg PO Q6HR PRN #30 tab 09/16/23 [Rx] Follow up Appointment(s)/Referral(s): Traci Alfonso MD [STAFF PHYSICIAN] - 6 Weeks Activity/Diet/Wound Care/Special Instructions: Instructions 1. Do not begin any exercise program for 3 weeks. 2. Do not resume sexual relations for 6 weeks or longer if uncomfortable. 3. You may take tub baths or showers at any time. 4. You may use tampons if desired after 6 weeks. 5. Keep any areas repaired with stitches clean and dry. 6. If you are not nursing, wear a good fitting, supportive bra during the day and limit fluid intake for at least 1 week to prevent breast engorgement. 7. Call the office, , within the next week to make appointment for your 6 week checkup if it has not already been made. 8. Report any of the following occurrences to the doctor promptly: a. Heavy, excessive bleeding b. Chills, fever c. Burning or frequency of urination d. Pain or redness and breasts if nursing e. Increasing pain or swelling of vulva (stitches). In addition to the above instructions, the following additional should be followed: 1. No heavy lifting or straining (exercising) until after 6 week checkup. 2. Keep abdominal incision clean and dry: You may wear a dressing if more comfortable. 3. Make office appointment for 2 weeks after delivery date. Discharge Disposition: HOME SELF-CARE
[2023-09-16 08:32] VITALS: RESP 18
[2023-09-16 15:53] VITALS: BP 124/68; PULSE 99; TEMP 97.7
== END 2023-09-16 18:30 | disposition home or self-care (01) | DRG 807 ==
LOC: FBPOP 11:25 → 4FBP 11:45
PROVIDERS: ADMIT Obstetrics & Gynecology; ATTEND Obstetrics & Gynecology
PROC: 3E0134Z Introduction of Serum, Toxoid and Vaccine into Subcutaneous Tissue, Percutaneous Approach (ICD-10-PCS; principal; 2023-09-15)
PROC: 10E0XZZ Delivery of Products of Conception, External Approach (ICD-10-PCS; principal; 2023-09-15)
DX: O99.824 Streptococcus B carrier state complicating childbirth (principal); O48.0 Post-term pregnancy; O99.344 Other mental disorders complicating childbirth; F90.9 Attention-deficit hyperactivity disorder, unspecified type; O99.02 Anemia complicating childbirth; D64.9 Anemia, unspecified; Z23 Encounter for immunization; Z3A.40 40 weeks gestation of pregnancy; Z37.0 Single live birth
CPT/HCPCS: 59025; 84112; 85025; 86850; 86900; 86901; 90707; 99213